=== PATIENT | female | born 1955 | race Two or more races ===

== ENCOUNTER 2018-11-13 00:34 | Emergency (ER) | payer MEDICAID, OTHER ==
[~2018-11-13] VITALS: Ht 165.1 cm; Wt 90.7 kg
[2018-11-13] MEDS ORDERED: ONDANSETRON HCL 4 MG/2 ML VIAL IV ONE (04:15)
[2018-11-13] MEDS ORDERED: MORPHINE SULFATE 4 MG/ML SYR/VIAL IV ONE (04:15)
[2018-11-13] MEDS ORDERED: IBUPROFEN 800 MG TAB PO ONE (04:30)
[2018-11-13 08:00] VITALS: BP 108/43
== END 2018-11-13 08:07 | disposition home or self-care (01) ==
LOC: EDBD 00:34 → ER 00:35
DX: S16.1XXA Strain of muscle, fascia and tendon at neck level, initial encounter (principal); S00.83XA Contusion of other part of head, initial encounter; S00.03XA Contusion of scalp, initial encounter; Y04.2XXA Assault by strike against or bumped into by another person, initial encounter; Y93.89 Activity, other specified; Y92.89 Other specified places as the place of occurrence of the external cause; Y99.8 Other external cause status
CPT/HCPCS: 70450; 70486; 72125

== ENCOUNTER 2021-01-06 16:54 | Emergency (ER) | payer OTHER ==
[~2021-01-06] VITALS: Ht 152.4 cm; Wt 81.6 kg
[2021-01-06 17:58] LABS: Urine Bacteria FEW /hpf (None Seen); Urine Blood Negative /uL (Negative); Urine WBC 1 /hpf (0 - 5)
[2021-01-06 18:59] VITALS: BP 137/76
[2021-01-06] MEDS ORDERED: KETOROLAC TROMETH 60MG/2ML VIAL IM ONE (19:45)
[2021-01-06] MEDS ORDERED: HYDROcodone-ACET 5/325MG TAB PO ONE (20:30)
[2021-01-06] MEDS ORDERED: ONDANSETRON ODT 4 MG TAB PO ONE (20:30)
== END 2021-01-06 21:02 | disposition home or self-care (01) ==
LOC: ER 16:55
DX: S39.012A Strain of muscle, fascia and tendon of lower back, initial encounter (principal); M79.10 Myalgia, unspecified site; M54.16 Radiculopathy, lumbar region; E03.9 Hypothyroidism, unspecified; X50.1XXA Overexertion from prolonged static or awkward postures, initial encounter; Y93.89 Activity, other specified; Y92.89 Other specified places as the place of occurrence of the external cause; Y99.8 Other external cause status
CPT/HCPCS: 72100; 81001; 96372; 99284; J1885; Q0162